=== PATIENT | female | born 1960 | race Two or more races ===

== ENCOUNTER 2017-03-13 20:21 | Emergency (ER) | payer MEDICAID, OTHER ==
[2017-03-13] MEDS ORDERED: HYDROmorphONE/DILAUDID 1 MG/ML SYR IVP ONE (20:43)
[2017-03-13] MEDS ORDERED: NS 1,000 ML IV ONE (20:43)
[2017-03-13] MEDS ORDERED: ONDANSETRON 4 MG/2 ML VIAL IVP ONE (20:43)
--- NOTE | 2017-03-13 20:45 | EDPHY ---
H & P Stated Complaint: epigastric pain since yesterday worsening Time Seen by Provider: 03/13/17 20:38 HPI/ROS: CHIEF COMPLAINT: Epigastric pain HISTORY OF PRESENT ILLNESS: The patient is a 56-year-old female with a history of gallstones who comes to the emergency department complaining of epigastric pain similar to her previous gallstone pain. It has been present for 24 hours. She has been seen here before referred to surgeon but has not followed up because she does not have insurance. She has not had a fever. She has vomited once. No diarrhea. She denies chest pain or shortness of breath. She denies any history of cardiac disease. REVIEW OF SYSTEMS: Constitutional: denies: chills, fever, recent illness, recent injury EENTM: denies: blurred vision, double vision, nose congestion Respiratory: denies: cough, shortness of breath Cardiac: denies: chest pain, irregular heart rate, lightheadedness, palpitations Gastrointestinal/Abdominal: See HPI Genitourinary: denies: dysuria, frequency, hematuria, pain Musculoskeletal: denies: joint pain, muscle pain Skin: denies: lesions, rash, jaundice, bruising Neurological: denies: headache, numbness, paresthesia, tingling, dizziness, weakness Hematologic/Lymphatic: denies: blood clots, easy bleeding, easy bruising Immunologic/allergic: denies: HIV/AIDS, transplant EXAM: GENERAL: Well-appearing, well-nourished and in no acute distress. HEAD: Atraumatic, normocephalic. EYES: Pupils equal round and reactive to light, extraocular movements intact, sclera anicteric, conjunctiva are normal. ENT: TMs normal, nares patent, oropharynx clear without exudates. Moist mucous membranes. NECK: Normal range of motion, supple without lymphadenopathy or JVD. LUNGS: Breath sounds clear to auscultation bilaterally and equal. No wheezes rales or rhonchi. HEART: Regular rate and rhythm without murmurs, rubs or gallops. ABDOMEN: Epigastric pain, right upper quadrant tenderness, BACK: No CVA tenderness, no spinal tenderness, step-offs or deformities EXTREMITIES: Normal range of motion, no pitting or edema. No clubbing or cyanosis. NEUROLOGICAL: Cranial nerves II through XII grossly intact. Normal speech, normal gait. 5/5 strength, normal movement in all extremities, normal sensation PSYCH: Normal mood, normal affect. SKIN: Warm, dry, normal turgor, no visible rashes or lesions. Source: Patient Exam Limitations: No limitations - Medical/Surgical History Hx Asthma: No Hx Chronic Respiratory Disease: No Hx Diabetes: No Hx Cardiac Disease: No Hx Renal Disease: No Hx Cirrhosis: No Hx Alcoholism: No Hx HIV/AIDS: No Hx Splenectomy or Spleen Trauma: No Other PMH: gall stones, R leg pain chronic - Family History Significant Family History: No pertinent family hx - Social History Smoking Status: Never smoked Alcohol Use: Sober Drug Use: None Constitutional: Initial Vital Signs Temperature (C) 36.5 C 03/13/17 20:26 Heart Rate 76 03/13/17 20:26 Respiratory Rate 20 03/13/17 20:26 Blood Pressure 150/95 H 03/13/17 20:26 O2 Sat (%) 96 03/13/17 20:26 O2 Delivery Mode Nasal Cannula O2 (L/minute) 2 Allergies/Adverse Reactions: No Known Allergies Allergy (Unverified 04/15/14 19:25) Home Medications: Medication Instructions Recorded Oxycodone HCl 03/13/17 Medical Decision Making - Diagnostics EKG Interpretation: An EKG obtained and was read and documented in trace view. Please see trace view for full reading and report. Sinus rhythm, no acute ischemic changes Imaging Results: Imaging Impressions Abdomen Ultrasound 03/13/17 20:43 Impression: 1. Cholelithiasis and sonographic Chavez sign. 2. Mild biliary dilation. No evidence of common bile duct stone. 3. No free fluid. Findings discussed with emergency department physician, Herbert Hanson MD on March 13, 2017 at 10:14 p.m. Imaging: Discussed imaging studies w/ weight caller Radiologist ED Course/Re-evaluation: 10:10 p.m. I discussed the case with Dr. Jose De Jesus Colón who will come to evaluate the patient. 10:30 p.m. it turns out that the patient now has [facility] insurance. I spoke with them and they would prefer to have her transfer there. I spoke with Dr. Saldana who will arrange transport and [facility] back for nurse to nurse. [facility]. Differential Diagnosis: Partial list of the Differential diagnosis considered include but were not limited to; cholelithiasis, cholecystitis, ascending cholangitis, peptic ulcer disease and although unlikely based on the history and physical exam, I also considered kidney stone, urinary tract infection, obstruction, acute coronary disease, PE, pneumonia. I discussed these differential diagnoses and the plan with the patient as well as the usual and expected course. The patient understands that the diagnosis is provisional and that in medicine we are not always correct and that further workup is often warranted. Usual and customary warnings were given. All of the patient's questions were answered. The patient was instructed to return to the emergency department should the symptoms at all worsen or return, otherwise to followup with the physician as we discussed. - Data Points Laboratory Results: Laboratory Results 03/13/17 20:35 03/13/17 20:35 Medications Given: Discontinued Medications Hydromorphone HCl (Dilaudid) 1 mg IVP EDNOW ONE Stop: 03/13/17 20:44 Last Admin: 03/13/17 21:00 Dose: 1 mg Sodium Chloride (Ns) 1,000 mls @ 0 mls/hr IV ONCE ONE; Wide Open PRN Reason: Protocol Stop: 03/13/17 20:44 Last Admin: 03/13/17 21:01 Dose: 1,000 mls Ondansetron HCl (Zofran) 4 mg IVP EDNOW ONE Stop: 03/13/17 20:44 Last Admin: 03/13/17 21:01 Dose: 4 mg Departure - Departure Disposition: [facility] Clinical Impression: Cholecystitis Condition: Fair Instructions: Cholecystitis (ED) Referrals: [facility],NOT SPECIFIC [Other] - As per Instructions
[2017-03-13 20:48] LABS: % IMMATURE GRANULYOCYTES 0.4 % (0.0-1.1); ABSOLUTE IMMATURE GRANULOCYTES 0.05 10^3/uL (0.00-0.10); ADD DIFF? NO; ADD MORPH? NO; ADD SCAN? NO; ATYPICAL LYMPHOCYTE FLAG 40 (0-99); FRAGMENT RBC FLAG 0 (0-99); HEMATOCRIT 35.7 % (38.0-47.0); HEMOGLOBIN 11.4 g/dL (12.6-16.3); LEFT SHIFT FLG 10 (0-99); LIPEMIA HEMOLYSIS FLAG 80 (0-99); MEAN CELL HEMOGLOBIN 23.5 pg (27.9-34.1); MEAN CELL HEMOGLOBIN CONCENTR. 31.9 g/dL (32.4-36.7); MEAN CELL VOLUME 73.5 fL (81.5-99.8); MEAN PLATELET VOLUME 9.4 fL (8.7-11.7); PLATELET CLUMPS FLAG 30 (0-99); PLATELET COUNT 333 10^3/uL (150-400); RED BLOOD CELL COUNT 4.86 10^6/uL (4.18-5.33); RED CELL DISTRIBUTION WIDTH 15.6 % (11.5-15.2)
--- NOTE | 2017-03-13 20:51 | CPEKG ---
Heart Rate: 67 RR Interval: 896 P-R Interval: 164 QRSD Interval: 80 QT Interval: 392 QTC Interval: 414 P Barton: 57 QRS Barton: 12 T Wave Barton: 38 EKG Severity - NORMAL ECG - EKG Impression: SINUS RHYTHM Electronically Signed By: Herbert Hanson 13-Mar-2017 21:03:35
[2017-03-13 21:00] LABS: ALANINE AMINOTRANSFERASE 60 IU/L (9-52); ALBUMIN 4.2 g/dL (3.5-5.0); ALKALINE PHOSPHATASE 109 IU/L (38-126); ANION GAP 14 mEq/L (8-16); ASPARTATE AMINOTRANSFERASE 19 IU/L (14-46); BILIRUBIN,TOTAL 0.7 mg/dL (0.1-1.4); BILIRUBIN-CONJUGATED 0.3 mg/dL (0.0-0.5); BILIRUBIN-UNCONJUGATED 0.4 mg/dL (0.0-1.1); CALCIUM 9.8 mg/dL (8.5-10.4); CARBON DIOXIDE 20 mEq/l (22-31); CHLORIDE 107 mEq/L (97-110); CREATININE 0.8 mg/dL (0.6-1.0); GLOMERULAR FILTRATION RATE > 60; GLUCOSE 108 mg/dL (70-100); POTASSIUM 3.8 mEq/L (3.5-5.2); SODIUM 141 mEq/L (134-144); TOTAL PROTEIN 7.8 g/dL (6.3-8.2)
[2017-03-13 22:45] VITALS: RESP 18
[2017-03-13 23:56] VITALS: BP 138/94; PULSE 75; TEMP 98.6; O2SAT 94
== END 2017-03-14 | disposition short-term general hospital (02) ==
DX: K81.9 Cholecystitis, unspecified (principal); E86.9 Volume depletion, unspecified
CPT/HCPCS: 96374; J1170; J2405